=== PATIENT | male | born 1965 | race Caucasian/White ===

== ENCOUNTER 2017-06-21 15:45 | Emergency (ER) | payer BC ==
--- NOTE | 2017-06-21 16:06 | ED ---
General Adult HPI - General Chief complaint: Chest Pain Stated complaint: chest pain/headaches Time Seen by Provider: 06/21/17 16:01 Source: patient, RN notes reviewed, old records reviewed Mode of arrival: wheelchair Limitations: no limitations - History of Present Illness Initial comments: This is a 51-year-old male to the ER for evaluation. Patient just ER for evaluation of multiple complaints. Patient states he feels flushed a little lightheaded with a headache. Patient has history of recent diagnosis of hypertension, recent diagnosis of sinus infection, started on hydrochlorothiazide for hypertension 2 days ago symptoms have progressed since yesterday in intensity. Patient denies any chest pain or shortness of breath no other complaints. Patient states he feels well nourished up with the urologist - Related Data Home Medications Medication Instructions Recorded Confirmed Chlorthalidone [Hygroton] 25 mg PO DAILY 06/21/17 06/21/17 Fluticasone Nasal [place] [Flonase 1 spray EA NOSTRIL DAILY PRN 06/21/17 06/21/17 Nasal [place]] guaiFENesin [Mucinex] 600 mg PO BID PRN 06/21/17 06/21/17 Allergies Allergy/AdvReac Type Severity Reaction Status Date / Time No Known Allergies Allergy Verified 06/21/17 17:13 Review of Systems ROS Statement: Those systems with pertinent positive or pertinent negative responses have been documented in the HPI. ROS Other: All systems not noted in ROS Statement are negative. Past Medical History Past Medical History: No Reported History, Sleep Apnea/CPAP/BIPAP History of Any Multi-Drug Resistant Organisms: None Reported Past Surgical History: Hernia Repair, Joint Replacement, Orthopedic Surgery Additional Past Surgical History / Comment(s): eye, right finger,right total hip , right foot, bilateral knee, sinus Past Psychological History: No Psychological Hx Reported Smoking Status: Never smoker Past Alcohol Use History: Occasional, Rare Past Drug Use History: None Reported General Exam Limitations: no limitations General appearance: alert, in no apparent distress Head exam: Present: atraumatic, normocephalic, normal inspection Eye exam: Present: normal appearance, PERRL, EOMI. Absent: scleral icterus, conjunctival injection, periorbital swelling ENT exam: Present: normal exam, mucous membranes moist Neck exam: Present: normal inspection. Absent: tenderness, meningismus, lymphadenopathy Respiratory exam: Present: normal lung sounds bilaterally. Absent: respiratory distress, wheezes, rales, rhonchi, stridor Cardiovascular Exam: Present: regular rate, normal rhythm, normal heart sounds. Absent: systolic murmur, diastolic murmur, rubs, gallop, clicks GI/Abdominal exam: Present: soft, normal bowel sounds. Absent: distended, tenderness, guarding, rebound, rigid Extremities exam: Present: normal inspection, full ROM, normal capillary refill. Absent: tenderness, pedal edema, joint swelling, calf tenderness Back exam: Present: normal inspection Neurological exam: Present: alert, oriented X3, CN II-XII intact Psychiatric exam: Present: normal affect, normal mood Skin exam: Present: warm, dry, intact, normal color. 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 ] Respiratory 17 16 Rate Blood Pressure 161/101 150/90 O2 Sat by Pulse 96 98 Oximetry - Reevaluation(s) Reevaluation #1: 06/21/17 18:34 Patient is without significant pain or shortness of breath Reevaluation #2: 06/21/17 18:34 Patient encouraged to stop hydrochlorothiazide EKG Findings - EKG Comments: EKG Findings:: EKG shows normal sinus rhythm rate of 79, RI 140, QRS 90, QTC 4: 15 Medical Decision Making - Medical Decision Making 51 male the ER for evaluation, patient evaluated for headache, CT negative, continued sinus infection, medication reaction, patient will stop HCthiazide and follow back up with family doctor for evaluation of blood pressure - Lab Data Result diagrams: 06/21/17 16:16 06/21/17 16:16 Lab Results 06/21/17 06/21/17 06/21/17 Range/Units 16:16 16:16 16:16 WBC 10.8 H (3.8-10.6) k/uL RBC 5.81 (4.30-5.90) m/uL Hgb 17.2 (13.0-17.5) gm/dL Hct 52.0 (39.0-53.0) % MCV 89.4 (80.0-100.0) fL MCH 29.6 (25.0-35.0) pg MCHC 33.1 (31.0-37.0) g/dL RDW 13.0 (11.5-15.5) % Plt Count 269 (150-450) k/uL Neutrophils % 64 % Lymphocytes % 25 % Monocytes % 6 % Eosinophils % 2 % Basophils % 1 % Neutrophils # 6.9 (1.3-7.7) k/uL Lymphocytes # 2.7 (1.0-4.8) k/uL Monocytes # 0.6 (0-1.0) k/uL Eosinophils # 0.2 (0-0.7) k/uL Basophils # 0.1 (0-0.2) k/uL PT (9.0-12.0) sec INR (<1.2) APTT (22.0-30.0) sec D-Dimer (<0.60) mg/L FEU Sodium 138 (137-145) mmol/L Potassium 4.4 (3.5-5.1) mmol/L Chloride 101 (98-107) mmol/L Carbon Dioxide 25 (22-30) mmol/L Anion Gap 12 mmol/L BUN 22 H (9-20) mg/dL Creatinine 1.00 (0.66-1.25) mg/dL Est GFR (MDRD) Af Amer >60 (>60 ml/min/1.73 sqM) Est GFR (MDRD) Non-Af >60 (>60 ml/min/1.73 sqM) Glucose 107 H (74-99) mg/dL Calcium 9.7 (8.4-10.2) mg/dL Magnesium 1.9 (1.6-2.3) mg/dL Total Bilirubin 0.7 (0.2-1.3) mg/dL AST 30 (17-59) U/L ALT 36 (21-72) U/L Alkaline Phosphatase 77 (38-126) U/L Total Creatine Kinase 76 (55-170) U/L CK-MB (CK-2) 0.6 (0.0-2.4) ng/mL CK-MB (CK-2) Rel Index 0.8 Troponin I <0.012 (0.000-0.034) ng/mL NT-Pro-B Natriuret Pep pg/mL Total Protein 7.7 (6.3-8.2) g/dL Albumin 4.4 (3.5-5.0) g/dL Lipase 83 (23-300) U/L 06/21/17 06/21/17 Range/Units 16:16 16:16 WBC (3.8-10.6) k/uL RBC (4.30-5.90) m/uL Hgb (13.0-17.5) gm/dL Hct (39.0-53.0) % MCV (80.0-100.0) fL MCH (25.0-35.0) pg MCHC (31.0-37.0) g/dL RDW (11.5-15.5) % Plt Count (150-450) k/uL Neutrophils % % Lymphocytes % % Monocytes % % Eosinophils % % Basophils % % Neutrophils # (1.3-7.7) k/uL Lymphocytes # (1.0-4.8) k/uL Monocytes # (0-1.0) k/uL Eosinophils # (0-0.7) k/uL Basophils # (0-0.2) k/uL PT 9.6 (9.0-12.0) sec INR 1.0 (<1.2) APTT 23.3 (22.0-30.0) sec D-Dimer 0.33 (<0.60) mg/L FEU Sodium (137-145) mmol/L Potassium (3.5-5.1) mmol/L Chloride (98-107) mmol/L Carbon Dioxide (22-30) mmol/L Anion Gap mmol/L BUN (9-20) mg/dL Creatinine (0.66-1.25) mg/dL Est GFR (MDRD) Af Amer (>60 ml/min/1.73 sqM) Est GFR (MDRD) Non-Af (>60 ml/min/1.73 sqM) Glucose (74-99) mg/dL Calcium (8.4-10.2) mg/dL Magnesium (1.6-2.3) mg/dL Total Bilirubin (0.2-1.3) mg/dL AST (17-59) U/L ALT (21-72) U/L Alkaline Phosphatase (38-126) U/L Total Creatine Kinase (55-170) U/L CK-MB (CK-2) (0.0-2.4) ng/mL CK-MB (CK-2) Rel Index Troponin I (0.000-0.034) ng/mL NT-Pro-B Natriuret Pep <11 pg/mL Total Protein (6.3-8.2) g/dL Albumin (3.5-5.0) g/dL Lipase (23-300) U/L - Radiology Data Radiology results: report reviewed (CTA head and neck negative chest x-ray negative), image reviewed Disposition Clinical Impression: Headache, Sinusitis, Hypertension Disposition: HOME SELF-CARE Condition: Good Instructions: Sinusitis (ED), Hypertension (ED) Referrals: Nonstaff,Physician [REFERRING] - 1-2 days
[2017-06-21 16:32] LABS: Basophils # (A) 0.1 k/uL (0-0.2); Basophils % (A) 1 %; CH 30.6; CHCM 34.4; Eosinophils # (A) 0.2 k/uL (0-0.7); Eosinophils % (A) 2 %; HDW 2.39; HGB 17.2 gm/dL (13.0-17.5); Luc # (Auto) 0.28; Luc % (Auto) 3; Lymphocytes # (A) 2.7 k/uL (1.0-4.8); Lymphocytes % (A) 25 %; MCH 29.6 pg (25.0-35.0); MCHC 33.1 g/dL (31.0-37.0); MCV 89.4 fL (80.0-100.0); Mean Platelet Volume 7.1; Monocytes # (A) 0.6 k/uL (0-1.0); Monocytes % (A) 6 %; Neutrophils # (A) 6.9 k/uL (1.3-7.7); Neutrophils % (A) 64 %; RBC 5.81 m/uL (4.30-5.90); WBC 10.8 k/uL (3.8-10.6); WBC (Perox) 10.17
--- NOTE | 2017-06-21 16:33 | XR ---
EXAMINATION TYPE: XR chest 2V DATE OF EXAM: 06/21/2017 COMPARISON: None HISTORY: 51-year-old male with right-sided chest pain TECHNIQUE: PA and lateral views FINDINGS: Heart is normal size. Aorta and pulmonary vasculature within normal limits. Strandy atelectasis in th e lower lungs. No consolidation or pleural effusion. IMPRESSION: No acute cardiopulmonary process.
[2017-06-21 16:44] LABS: Partial Thromboplastin Time 23.3 sec (22.0-30.0); Prothrombin Time 9.6 sec (9.0-12.0)
[2017-06-21 16:52] LABS: ALT 36 U/L (21-72); AST 30 U/L (17-59); Alkaline Phosphatase 77 U/L (38-126); Anion Gap 12 mmol/L; Blood Urea Nitrogen 22 mg/dL (9-20); Calcium 9.7 mg/dL (8.4-10.2); Carbon Dioxide 25 mmol/L (22-30); Chloride 101 mmol/L (98-107); Glucose 107 mg/dL (74-99); Magnesium 1.9 mg/dL (1.6-2.3); Non-African American GFR(MDRD) >60 (>60 ml/min/1.73 sqM); Potassium 4.4 mmol/L (3.5-5.1); Sodium 138 mmol/L (137-145); Total Bilirubin 0.7 mg/dL (0.2-1.3); Total Protein 7.7 g/dL (6.3-8.2)
[2017-06-21 16:53] LABS: Creatine Kinase 76 U/L (55-170)
[2017-06-21] MEDS ORDERED: RX INFO: IV CONTRAST WAS GIVEN 1 EACH MISC MISCELLANE PRN (17:00)
[2017-06-21 17:01] VITALS: RESP 16
[2017-06-21 17:05] LABS: Creatine Kinase MB 0.6 ng/mL (0.0-2.4); Troponin I <0.012 ng/mL (0.000-0.034)
--- NOTE | 2017-06-21 18:05 | CT ---
EXAMINATION TYPE: CT angio head neck DATE OF EXAM: 06/21/2017 HISTORY: Chest pain and head pressure today. COMPARISON: NONE CT DLP: 355.2 mGycm. Automated Exposure Control for Dose Reduction was Utilized. TECHNIQUE: CTA scan of the neck is performed with IV Contrast, patient injected with 65 mL of Omnipa que 240, axial images are obtained, coronal and sagittal reformatted images are reviewed. Three-D rec onstructed images are created on an independent workstation and reviewed. FINDINGS: Arterial Vasculature: The aortic arch and great vasculature are unremarkable. The right and left li tid systems are widely patent. The right and left vertebral systems are also widely patent. The intra cranial anterior circulation and intracranial posterior circulation are widely patent, without focal findings. Venous structures: Unremarkable. Visualized lung apices: Unremarkable. Visualized soft tissues and skeletal structures of the neck: Unremarkable. Calvarium: Negative. Intracranial structures: No acute process. Paranasal sinuses: There is prominent opacification of the bilateral ethmoid sinuses consistent with inflammatory changes. There is mild inflammatory changes at the base of the maxillary sinuses bilater ally, greater on the right. Remaining paranasal sinuses are clear. Middle ear cavities and mastoid sinus air cells: Clear bilaterally. IMPRESSION: 1. NO ACUTE VASCULAR OR INTRACRANIAL PROCESS. 2. INCIDENTAL PARANASAL SINUS INFLAMMATORY CHANGES NOTED.
[2017-06-21] MEDS ORDERED: IBUPROFEN 800 MG TAB PO STA (18:45)
[2017-06-21] MEDS ORDERED: ACETAMINOPHEN TAB 500 MG TAB PO STA (18:45)
[2017-06-21 18:52] VITALS: BP 153/90; PULSE 72; TEMP 97.3
== END 2017-06-21 19:01 | disposition home or self-care (01) ==
LOC: EC 15:45
DX: I10 Essential (primary) hypertension (principal); J32.9 Chronic sinusitis, unspecified; R07.9 Chest pain, unspecified; G47.30 Sleep apnea, unspecified; Z99.89 Dependence on other enabling machines and devices; Z79.899 Other long term (current) drug therapy
CPT/HCPCS: 36415; 93005; 85379; 83880; 80053; 82550; 82553; 83690; 83735; 84484; 85025; 85610; 85730; 71020; 70496; 70498; 99285; Q9967